=== PATIENT | female | born 1990 | race Caucasian/White ===

== ENCOUNTER 2018-12-06 05:59 | Emergency (ER) | payer MEDICAID, OTHER ==
[~2018-12-06] VITALS: Ht 162.6 cm; Wt 63.0 kg
[2018-12-06] MEDS ORDERED: ONDANSETRON ODT 8 MG ONE (06:14)
[2018-12-06 06:27] LABS: MEAN CORPUSCULAR HEMOGLOBIN 33.5 pg (27.0-34.8); MEAN CORPUSCULAR VOLUME 98.6 fL (80-100); MEAN PLATELET VOLUME 7.5 fL (7.4-10.4); PLATELET COUNT 362 x10^3/uL (130-400); RED BLOOD COUNT 4.59 x10^6/uL (3.82-5.3); RED CELL DISTRIBUTION WIDTH 12.7 % (9.6-15.2)
[2018-12-06] MEDS ORDERED: ONDANSETRON ODT 8 MG PO ONE (06:30)
[2018-12-06 06:39] LABS: ALBUMIN 4.5 g/dL (3.4-5.0); ANION GAP 13 mmol/L (5-15); CHLORIDE 107 mmol/L (98-107)
--- NOTE | 2018-12-06 06:42 | NUR ---
PT. PROVIDED WITH 1/2 CUP WATER FOR PO CHALLENGE AFTER OK FROM DR. DIGGS. PT. DOES REPORT FEELING BETTER AT THIS TIME.
[2018-12-06 06:45] LABS: ALANINE AMINOTRANSFERASE 18 U/L (12-78); ALKALINE PHOSPHATASE 68 U/L (45-117); BILIRUBIN,TOTAL 1.2 mg/dL (0.2-1.0); CREATININE 0.93 mg/dL (0.55-1.02); TOTAL PROTEIN 7.7 g/dL (6.4-8.2)
[2018-12-06 06:57] LABS: BASOPHILS # (AUTO) 0.05 x10^3/uL (0-0.1); BASOPHILS % (AUTO) 0 % (0-1); EOSINOPHILS # (AUTO) 0.09 x10^3/uL (0-0.4); EOSINOPHILS % (AUTO) 1 % (1-7); LYMPHOCYTES # (AUTO) 3.17 x10^3/uL (1-3.4); LYMPHOCYTES % (AUTO) 17 % (22-44); MD SCAN; MONOCYTES # (AUTO) 1.08 x10^3/uL (0.2-0.8); MONOCYTES % (AUTO) 6 % (2-9); NEUTROPHILS # (AUTO) 13.88 x10^3/uL (1.8-6.8); NEUTROPHILS % (AUTO) 76 % (42-75)
--- NOTE | 2018-12-06 06:57 | NUR ---
REPORT TO KIRK BURNS AND KIRK MOSS. PT. WAS ABLE TO TOLERATE THE WATER THAT WAS PROVIDED AND REPORTS FEELING BETTER.
--- NOTE | 2018-12-06 07:20 | NUR ---
PT resting on gurney. pt reports pain 6/10 in abd "in diaphram area"
[2018-12-06] MEDS ORDERED: MAALOX/HYOSCYAMINE/LIDOCAINE 45 ML BTL ONE (07:24)
--- NOTE | 2018-12-06 07:26 | NUR ---
PT MEDICATED PER EMAR
[2018-12-06] MEDS ORDERED: MAALOX/HYOSCYAMINE/LIDOCAINE 45 ML BTL PO ONE (07:30)
[2018-12-06] MEDS ORDERED: HYDROcodone/APAP 5/325 TABLET PO ONE (08:00)
[2018-12-06] MEDS ORDERED: DICYCLOMINE 20 MG TABLET PO ONE (08:00)
--- NOTE | 2018-12-06 08:09 | NUR ---
US into see pt
[2018-12-06] MEDS ORDERED: DICYCLOMINE 20 MG TABLET ONE (08:47)
[2018-12-06] MEDS ORDERED: HYDROcodone/APAP 5/325 TABLET ONE (08:48)
--- NOTE | 2018-12-06 08:52 | NUR ---
PT MEDICATED PER EMAR. PT STILL COMPLAINS OF PAIN 10 IN ABD. WILL REASSESS PAIN.
[2018-12-06 09:56] VITALS: BP 116/68
== END 2018-12-06 09:58 | disposition home or self-care (01) ==
LOC: ED 09:55
DX: R10.13 Epigastric pain (principal); R11.2 Nausea with vomiting, unspecified
CPT/HCPCS: 36415; 76700; 80053; 83690; 84703; 85025; 99284; Q0162